=== PATIENT | male | born 1995 | race Caucasian/White ===

== ENCOUNTER 2017-06-04 12:57 | Emergency (ER) | payer SELFPAY ==
[~2017-06-04] VITALS: Ht 182.9 cm; Wt 95.0 kg
[~2017-06-04 12:57] MED LIST: PENI500T PO
[2017-06-04 13:02] VITALS: BP 157/79; PULSE 86; RESP 16; TEMP 98.3; O2SAT 99
[2017-06-04] MEDS ORDERED: LIDOCAINE HCL 1% PF 30 ML VIAL ONE (13:13)
[2017-06-04] MEDS ORDERED: BUPIVACAINE HCL PF 0.5% 10 ML VIAL INFIL ONE (13:15)
[2017-06-04] MEDS ORDERED: LIDOCAINE HCL 1% 50 ML VIAL INFIL ONE (13:15)
[2017-06-04] MEDS ORDERED: CEPH-460 PO (13:41)
[2017-06-04] MEDS ORDERED: DICL75TA PO (13:41)
[2017-06-04] MEDS ORDERED: BACT800T5 PO (13:41)
[2017-06-04] MEDS ORDERED: HYDR-3516 PO (13:41)
--- NOTE | 2017-06-04 13:51 | PD ---
HPI Chief Complaint: Skin Problem Time Seen by Provider: 13:07 Travel History International Travel<30 days: No Contact w/Intl Traveler<30days: No Traveled to known affect area: No History of Present Illness HPI 21-year-old male that presents to the ED for evaluation of possible infection to his middle finger on the left hand. Per patient his been swelling and red for the past week and worse for the past 2 days. He denies any injury. He denies any cut or injury. Per patient, or swelling or painful. Per patient pain is 10 out of 10. Patient's concern for infection. Finger itself is erythematous. Denies any numbness, tingling, weakness. No allergies to medication. Able to move the finger fully. PFSH Past Medical History Medical History: Denies Significant Hx Diminished Hearing: No Immunizations Current: Yes Tetanus Vaccination: < 5 Years Influenza Vaccination: No ?: Not Past Surgical History Surgical History: No Previous Surgery Social History Alcohol Use: No Tobacco Use: No Substance Use: No Allergies-Medications (Allergen,Severity, Reaction): Coded Allergies: No Known Allergies (Unverified Adverse Reaction, Unknown, 06/04/17) Reported Meds & Prescriptions Reported Meds & Active Scripts Active Keflex (Cephalexin) 500 Mg Cap 500 Mg PO Q8H 10 Days Bactrim DS (Sulfamethoxazole-Trimethoprim) 800-160 Mg Tab 1 Tab PO BID 10 Days Hydrocodone-Acetaminophen 5-325 mg Tab 1 Tab PO Q6H PRN Diclofenac Sodium DR (Diclofenac Sodium) 75 Mg Tabdr 75 Mg PO BID PRN Review of Systems Except as stated in HPI: all other systems reviewed are Neg Physical Exam Narrative GENERAL: SKIN: Warm and dry. HEAD: Atraumatic. Normocephalic. EYES: Pupils equal and round. No scleral icterus. No injection or drainage. ENT: No nasal bleeding or discharge. Mucous membranes pink and moist. NECK: Trachea midline. No JVD. CARDIOVASCULAR: Regular rate and rhythm. RESPIRATORY: No accessory muscle use. Clear to auscultation. Breath sounds equal bilaterally. GASTROINTESTINAL: Abdomen soft, non-tender, nondistended. Hepatic and splenic margins not palpable. MUSCULOSKELETAL: Extremities without clubbing, cyanosis, or edema. No obvious deformities. Patient has full range of motion of the upper and lower extremities bilaterally. Patient has full range of motion of all the digits on the left hand. Patient able to move the left middle finger with minimal discomfort. Patient does have pain and swelling noted on the distal part of the finger. Erythematous and warm to touch. Tender to touch. Some purulence noted. Good capillary refill. NEUROLOGICAL: Awake and alert. No obvious cranial nerve deficits. Motor grossly within normal limits. Five out of 5 muscle strength in the arms and legs. Normal speech. PSYCHIATRIC: Appropriate mood and affect; insight and judgment normal. Data Data Last Documented VS Vital Signs Date Time Temp Pulse Resp B/P (MAP) Pulse Ox O2 Delivery O2 Flow Rate FiO2 06/04/17 13:02 98.3 86 16 157/79 (105) 99 Orders Orders Wound Culture And Gram Stain (06/04/17 13:09) Wound Care (06/04/17 13:09) Bupivacaine Pf 0.5% Inj (Marcaine Pf 0.5 (06/04/17 13:15) Lidocaine 1% Inj (50 Ml) (Xylocaine 1% I (06/04/17 13:15) Lidocaine Pf 1% Inj (Xylocaine-Mpf 1% In (06/04/17 13:13) Ed Discharge Order (06/04/17 13:40) MDM Medical Decision Making Medical Screen Exam Complete: Yes Emergency Medical Condition: Yes Medical Record Reviewed: Yes Differential Diagnosis Felon versus abscess versus cellulitis Narrative Course 21-year-old male that presents to the ED for evaluation of infection to his left middle finger. Patient was properly examined and was found to have signs and symptoms consistent with appears to be felon of the distal digit. Does appear to be infected at this time. He recommended incision and drainage. The indentation agrees. After explained procedure to the patient and he agreed to it abscess was incised and drained as stated in procedure note. Minimal drainage was obtained but there was some hard pus coming out of the wound. Culture was taken of this. Patient was told to put ice on the wound. Packing was placed and told to remove the packing in 2 days. Come back for recheck in 48 hours if no improvement at all. Patient will be given a prescription for diclofenac sodium, Lortab, Bactrim and Keflex. See ED worsening symptoms. Follow with PCP. Procedures Procedure Narrative After the risks and benefits were discussed the following procedure was performed: INCISION AND DRAINAGE OF ABSCESS: The area was prepped and was sterilely draped. A subcutaneous wheal of 1 % Xylocaine with a total number 5 mL was used to anesthetize the area by digital block. The area was properly anesthetized. A number 11 scalpel was used to make a 0.5 -cm incision across the area of the abscess. Cultures were obtained. The abscess was drained an irrigated with normal saline. Quarter inch iodoform packing was placed in the wound. Sterile dressing applied. Patient advised to have packing removed in two days. Diagnosis Primary Impression: Felon of finger Patient Instructions: General Instructions Departure Forms: Tests/Procedures, Work Release Enter return to work date: Jun 07, 2017 Additional Instructions: Take medications as prescribed. Follow-up with PCP. See ED for any worsening symptoms. Do not drink or drive while taking pain medication. Apply ice or heat as needed for pain. Recheck in 48 hours if no improvement at all. Med/Other Pt SpecificInfo: Prescription(s) given, Wound Care Scripts Cephalexin (Keflex) 500 Mg Cap 500 MG PO Q8H for Infection for 10 Days, #30 CAP 0 Refills Prov: Jorge Escobar MD 06/04/17 Sulfamethoxazole-Trimethoprim (Bactrim DS) 800-160 Mg Tab 1 TAB PO BID for Infection for 10 Days, #20 TAB 0 Refills Prov: Jorge Escobar MD 06/04/17 Hydrocodone-Acetaminophen (Hydrocodone-Acetaminophen) 5-325 mg Tab 1 TAB PO Q6H Y for PAIN, #12 TAB 0 Refills Prov: Jorge Escobar MD 06/04/[address] (Diclofenac Sodium DR) 75 Mg Tabdr 75 MG PO BID Y for PAIN SCALE 1 TO 10, #20 TAB 0 Refills Prov: Jorge Escobar MD 06/04/17 Disposition: 01 DISCHARGE HOME Condition: Stable Jayme Perez Jun 04, 2017 13:51
== END 2017-06-04 14:01 | disposition home or self-care (01) ==
LOC: PHEFT 12:57
DX: L03.012 Cellulitis of left finger (principal); B95.61 Methicillin susceptible Staphylococcus aureus infection as the cause of diseases classified elsewhere; Z16.39 Resistance to other specified antimicrobial drug
CPT/HCPCS: 26011; 86403; 87070; 87186